=== PATIENT | male | born 1970 | race Native Hawaiian/Other Pacific Islander ===

== ENCOUNTER 2017-03-16 21:10 | Emergency (ER) | payer BC ==
[~2017-03-16] VITALS: Ht 180.3 cm; Wt 117.9 kg
[2017-03-16 21:41] VITALS: BP 154/80
== END 2017-03-16 23:15 | disposition home or self-care (01) ==
LOC: ER 21:17
DX: J40 Bronchitis, not specified as acute or chronic (principal)
CPT/HCPCS: 71045; 99283; A4606; Z7610